=== PATIENT | male | born 1960 | race African-American/Black ===

== ENCOUNTER 2022-12-16 14:02 | Emergency (ER) | payer MEDICAID, OTHER ==
[2022-12-16] MEDS ORDERED: Sodium Chloride 0.9% 1,000 ML ONE (14:49)
[2022-12-16 15:24] LABS: #Basophils 0.1 thou/uL (0.0-0.2); #Lymphocytes 0.6 thou/uL (1.20-3.40); #Monocytes 0.8 thou/uL (0.11-0.59); #Neutrophils 5.4 thou/uL (1.40-6.50); %Basophils 1.6 % (0.0-1.0); %Lymphocytes 9.2 % (21.0-51.0); %Monocytes 11.4 % (0.0-10.0); %Neutrophils 77.8 % (42.0-75.0); Hematocrit 42.4 % (42.0-52.0); Hemoglobin 13.8 g/dL (14.0-18.0); Mean Corpuscular HGB CONC 32.5 g/dL (32.0-36.0); Mean Corpuscular Hemoglobin 26.3 pg (27.0-31.0); Mean Platelet Volume 11.5 fL (7.4-10.4); Platelet Count 164 10x3/uL (130-400); RBC Distribution Width 13.5 % (11.5-14.5); Red Blood Cell (RBC) Count 5.23 mill/uL (4.70-6.10); White Blood Cell (WBC) Count 6.9 10x3/uL (4.8-10.8)
[2022-12-16 15:36] LABS: ALT (SGPT) Less than 7 U/L (8-55); AST (SGOT) 12 U/L (5-34); Albumin 3.7 g/dL (3.4-4.8); Alkaline Phosphatase 71 U/L (40-110); Anion Gap 25 mmol/L (10-20); BUN (Urea Nitrogen) 16 mg/dL (8.4-25.7); Bilirubin, Total 0.8 mg/dL (0.2-1.2); Calc. Creatinine Clearance 0 mL/min (70-130); Calcium 9.3 mg/dL (7.8-10.44); Carbon Dioxide 20 mmol/L (23-31); Chloride 90 mmol/L (98-107); Estimated GFR 47; Globulin 3.3 g/dL (2.4-3.5); Glucose 101 mg/dL (80-115); Sodium 132 mmol/L (136-145)
[2022-12-16 15:39] LABS: Troponin I Less than 0.010 ng/mL (< 0.028)
[2022-12-16 15:40] LABS: Potassium 2.5 mmol/L (3.5-5.1)
[2022-12-16] MEDS ORDERED: Potassium Chloride 20 MEQ TAB ONE (15:51)
[2022-12-16] MEDS ORDERED: NS 0.9% w/ 20 MEQ KCL 1,000 ML ONE (15:53)
[2022-12-16] MEDS ORDERED: Acetaminophen 500 MG TAB ONE (15:53)
[2022-12-16 15:57] LABS: Bilirubin Large (Negative); Blood, Urine Negative (Negative); Glucose, Urine (Dipstick) Negative (Negative); Ketone, Urine > or equal to 80 mg/dL (Negative); Leukocyte Negative (Negative); Nitrite Negative (Negative); Protein, Urine (Dipstick) 30 mg/dL (Neg-Trace); Specific Gravity, Urine 1.025 (1.005-1.030); pH, Urine 5.5 (5.0-9.0)
[2022-12-16 15:58] LABS: Clarity Hazy (Clear)
[2022-12-16 16:01] LABS: Magnesium 1.9 mg/dL (1.6-2.6)
[2022-12-16 16:08] LABS: Bacteria/HPF Rare-Few HPF (None Seen); CAUTI Indications for Culture < 2yrs of age; RBC/HPF None Seen HPF (0-3); Squamous Epithelial 0-3 HPF (0-3); WBC/HPF 0-3 HPF (0-3)
[2022-12-16 16:09] LABS: Mucous/LPF 1+ LPF (<2+); Urine Culture Reflex Yes Yes
== END 2022-12-16 18:22 | disposition home or self-care (01) ==
LOC: MADERS 14:02
DX: E87.6 Hypokalemia (principal); N28.9 Disorder of kidney and ureter, unspecified
CPT/HCPCS: 80053; 81001; 83735; 83880; 84443; 84484; 85025; 87086; 93005; 96361; 96365; 96366; J3480; J7050